=== PATIENT | female | born 2000 | race African-American/Black ===

== ENCOUNTER 2018-04-05 21:18 | Inpatient (IN) ==
[2018-04-05] MEDS ORDERED: PANTOPRAZOLE 40 MG VIAL IV STA (22:26)
[2018-04-05] MEDS ORDERED: ONDANSETRON 4 MG/2 ML VIAL IV STA (22:26)
[2018-04-05] MEDS ORDERED: SODIUM CHLORIDE 0.9% 1,000 ML IV STA (22:26)
[2018-04-05 23:18] LABS: Basophils % 0.2 % (0.0-0.8); Eosinophils # 0.3 10*3/uL (0.0-0.87); Eosinophils % 1.8 % (0.00-10.9); Hematocrit 32.5 VOL% (35.7-47.0); Hemoglobin 10.9 GM/DL (12.0-16.0); Immature Granulocytes % 0.9 %; Immature Granulocytes Absolute 0.15 #; Lymphocytes # 2.3 10*3/uL (1.4-4.0); Lymphocytes % 14.3 % (21.3-54.2); Mean Corpuscular HGB Conc 33.5 GM/DL (32-36); Mean Corpuscular Hemoglobin 24 PG (27-34); Mean Corpuscular Volume 71.1 FL (87-102); Mean Platelet Volume 10.3 FL (9.6-12.0); Monocytes # 1.6 10*3/uL (0.11-0.8); Monocytes % 9.7 % (1.7-12.7); Neutrophils # 11.8 10*3/uL (1.4-7.4); Neutrophils % 73.1 % (38.7-73.9); Platelet Count 416 T/CUMM (130-400); Red Blood Count 4.57 MC/CUMM (3.8-5.5); Red Cell Distribution Width 16.8 % (9.3-17.3); White Blood Count 16.2 T/CUMM (4-12)
[2018-04-05 23:50] LABS: Albumin 3.3 G/DL (3.4-5.0); Bilirubin,Total 0.6 MG/DL (0.2-1.0); Calcium 9.4 MG/DL (8.5-10.1); Osmolality,Calculated 296.7 MOS/KG (273-304); Total Protein 8.4 G/DL (6.4-8.3)
[2018-04-05 23:51] LABS: Lactic Acid 1.5 MMOL/L (0.4-2.0)
[2018-04-05 23:59] LABS: Apearance,Urine Slightly Hazy (Clear); Bilirubin,Urine Negative (Negative); Blood, Urine Large mg/dL (Negative); Glucose,Urine (UA) Negative (Negative); Ketones,Urine Negative (Negative); Nitrite,Urine Negative (Negative); Protein,Urine 30 MG/DL; RBC,Urine 1 /HPF (0-4); Squamous Epithelial Cell,Urine Occasional /HPF (0-10); Urine Color Yellow (Yellow); Urine Urobilinogen < 2.0 EU/DL (0.2-1.0); WBC,Urine 4 /HPF (0-6)
[2018-04-06] MEDS ORDERED: SODIUM CHLORIDE 0.9% 1,000 ML IV STA (00:16)
[2018-04-06] MEDS ORDERED: SODIUM CHLORIDE 0.9% 1,000 ML IV SCH (02:00)
[2018-04-06 04:13] LABS: Barbiturates Screen,Urine Negative (Negative); Benzodiazepines Screen,Urine Negative (Negative); Cannabinoid Screen,Urine Negative (Negative); Opiate Screen,Urine Negative (Negative); Phencyclidine Screen,Urine Negative (Negative)
[2018-04-06 05:48] LABS: Basophils % 0.1 % (0.0-0.8); Eosinophils # 0.2 10*3/uL (0.0-0.87); Eosinophils % 1.7 % (0.00-10.9); Hemoglobin 9.1 GM/DL (12.0-16.0); Immature Granulocytes % 0.9 %; Immature Granulocytes Absolute 0.12 #; Lymphocytes % 14.6 % (21.3-54.2); Mean Corpuscular HGB Conc 32.5 GM/DL (32-36); Mean Corpuscular Hemoglobin 23 PG (27-34); Mean Corpuscular Volume 71.6 FL (87-102); Mean Platelet Volume 11.1 FL (9.6-12.0); Monocytes # 1.2 10*3/uL (0.11-0.8); Monocytes % 8.7 % (1.7-12.7); Neutrophils # 10.1 10*3/uL (1.4-7.4); Platelet Count 385 T/CUMM (130-400); Red Blood Count 3.91 MC/CUMM (3.8-5.5); Red Cell Distribution Width 16.9 % (9.3-17.3); White Blood Count 13.6 T/CUMM (4-12)
[2018-04-06 05:59] LABS: Risk Ratio 4.52; VLDL CHOLESTEROL 13.8 MG/DL
[2018-04-06] MEDS ORDERED: POTASSIUM CHLORIDE 20 MEQ TABLET PO ONE (06:11)
[2018-04-06 06:20] LABS: Albumin 2.7 G/DL (3.4-5.0); Bilirubin,Total 0.8 MG/DL (0.2-1.0); Calcium 8.1 MG/DL (8.5-10.1); Osmolality,Calculated 302.1 MOS/KG (273-304); Potassium 3.7 MMOL/L (3.5-5.1); Thyroid Stimulating Hormone 0.738 uIU/ml (0.358-3.74); Total Protein 6.9 G/DL (6.4-8.3)
[2018-04-06] MEDS ORDERED: LEVOFLOXACIN INJ 500 MG in PREMIX 1 EACH IV ONE (06:44)
[2018-04-06 06:49] LABS: Hepatitis A Ab IgM Quant 0.14 Index; Hepatitis A Ab IgM Result Negative (Negative); Hepatitis B Core IgM Quant 0.07 Index; Hepatitis B Core IgM Result Negative (Negative); Hepatitis B Surface Ag Quant 0.27 Index; Hepatitis B Surface Ag Result Negative (Negative); Hepatitis C Virus Ab Quant 0.09 Index; Hepatitis C Virus Ab Result Negative (Negative)
[2018-04-06 08:19] LABS: HIV Antigen/Antibody Result Nonreactive (Nonreactive)
[2018-04-06] MEDS ORDERED: PANTOPRAZOLE 40 MG TABLET PO SCH (09:00)
[2018-04-06] MEDS: SODIUM CHLORIDE 0.9% 1,000 ML IV SCH ×2 (10:05→13:08)
[2018-04-06] MEDS: SODIUM BICARB INJ 50 MEQ in DEXTROSE 5% NACL 0.45% 1,000 ML IV SCH (17:09)
[2018-04-06] MEDS: PANTOPRAZOLE 40 MG TABLET PO SCH (20:51)
[2018-04-06] MEDS: ONDANSETRON 4 MG/2 ML VIAL IV PRN (22:27)
[2018-04-07] MEDS: SODIUM BICARB INJ 50 MEQ in DEXTROSE 5% NACL 0.45% 1,000 ML IV SCH ×2 (02:50→15:43)
[2018-04-07 06:40] LABS: Basophils % 0.2 % (0.0-0.8); Eosinophils # 0.3 10*3/uL (0.0-0.87); Eosinophils % 2.3 % (0.00-10.9); Hematocrit 25.9 VOL% (35.7-47.0); Hemoglobin 8.4 GM/DL (12.0-16.0); Immature Granulocytes % 1.1 %; Immature Granulocytes Absolute 0.13 #; Lymphocytes # 1.9 10*3/uL (1.4-4.0); Lymphocytes % 16.7 % (21.3-54.2); Mean Corpuscular HGB Conc 32.4 GM/DL (32-36); Mean Corpuscular Hemoglobin 23 PG (27-34); Mean Corpuscular Volume 71.9 FL (87-102); Mean Platelet Volume 10.6 FL (9.6-12.0); Monocytes % 8.5 % (1.7-12.7); Neutrophils # 8.2 10*3/uL (1.4-7.4); Neutrophils % 71.2 % (38.7-73.9); Platelet Count 359 T/CUMM (130-400); White Blood Count 11.5 T/CUMM (4-12)
[2018-04-07 07:02] LABS: Calcium 8.3 MG/DL (8.5-10.1)
[2018-04-07 07:20] LABS: % Iron Saturation 29.4 % (18-50); Ferritin 149.3 ng/ml (8-252)
[2018-04-07 09:36] LABS: Collection Time,Urine 24 HOURS; Creatinine 24 Hr Urine Result 0.98 G/24HR (0.60-1.80); Total Protein 24 Hr Ur Result 500 MG/24HR (0-149.1); Total Volume,Urine 2000 ML (400-2000)
[2018-04-07] MEDS: PANTOPRAZOLE 40 MG TABLET PO SCH ×2 (10:59→20:32)
[2018-04-08] MEDS: ONDANSETRON 4 MG/2 ML VIAL IV PRN (03:47)
[2018-04-08 04:09] LABS: Basophils # 0.1 10*3/uL (0.0-0.2); Basophils % 0.4 % (0.0-0.8); Eosinophils # 0.4 10*3/uL (0.0-0.87); Eosinophils % 3.3 % (0.00-10.9); Hematocrit 26.7 VOL% (35.7-47.0); Hemoglobin 8.8 GM/DL (12.0-16.0); Immature Granulocytes Absolute 0.12 #; Lymphocytes % 17.4 % (21.3-54.2); Mean Corpuscular Hemoglobin 24 PG (27-34); Mean Platelet Volume 10.6 FL (9.6-12.0); Monocytes # 0.9 10*3/uL (0.11-0.8); Monocytes % 7.9 % (1.7-12.7); Neutrophils # 8.1 10*3/uL (1.4-7.4); Platelet Count 400 T/CUMM (130-400); Red Blood Count 3.71 MC/CUMM (3.8-5.5); White Blood Count 11.6 T/CUMM (4-12)
[2018-04-08] MEDS ORDERED: MORPHINE 4 MG/1 ML VIAL IV ONE (04:13)
[2018-04-08 04:28] LABS: Blood Urea Nitrogen 56 MG/DL (7-18); Calcium 8.6 MG/DL (8.5-10.1); Glucose 106 MG/DL (74-106); Potassium 3.8 MMOL/L (3.5-5.1); Sodium 143 MMOL/L (136-145)
[2018-04-08] MEDS: SODIUM BICARB INJ 50 MEQ in DEXTROSE 5% NACL 0.45% 1,000 ML IV SCH ×2 (05:39→13:49)
[2018-04-08] MEDS: LEVOFLOXACIN INJ 250 MG in PREMIX 1 EACH IV SCH (06:18)
[2018-04-08] MEDS ORDERED: LIDOCAINE 100 MG/5 ML SYRINGE ONE (09:00)
[2018-04-08] MEDS ORDERED: PROPOFOL 200 MG/20 ML VIAL IV ONE (09:00)
[2018-04-08] MEDS: PANTOPRAZOLE 40 MG TABLET PO SCH ×2 (13:50→20:47)
[2018-04-08] MEDS: DEXTROSE 5% NACL 0.45% 1,000 ML IV SCH (13:50)
[2018-04-09] MEDS ORDERED: ACETAMINOPHEN 325 MG TABLET PO ONE (01:00)
[2018-04-09] MEDS: DEXTROSE 5% NACL 0.45% 1,000 ML IV SCH ×2 (01:12→14:06)
[2018-04-09] MEDS ORDERED: PROMETHAZINE 25 MG/1 ML VIAL IM ONE (01:25)
[2018-04-09] MEDS ORDERED: MEPERIDINE 25 MG/1 ML VIAL IV ONE (01:44)
[2018-04-09 04:08] LABS: Basophils % 0.2 % (0.0-0.8); Eosinophils # 0.3 10*3/uL (0.0-0.87); Eosinophils % 2.1 % (0.00-10.9); Hematocrit 27.3 VOL% (35.7-47.0); Hemoglobin 9.1 GM/DL (12.0-16.0); Immature Granulocytes % 0.8 %; Immature Granulocytes Absolute 0.12 #; Lymphocytes # 1.7 10*3/uL (1.4-4.0); Lymphocytes % 11.7 % (21.3-54.2); Mean Corpuscular HGB Conc 33.3 GM/DL (32-36); Mean Corpuscular Hemoglobin 24 PG (27-34); Mean Corpuscular Volume 70.4 FL (87-102); Mean Platelet Volume 10.4 FL (9.6-12.0); Monocytes # 0.9 10*3/uL (0.11-0.8); Monocytes % 6.4 % (1.7-12.7); Neutrophils # 11.7 10*3/uL (1.4-7.4); Neutrophils % 78.8 % (38.7-73.9); Platelet Count 448 T/CUMM (130-400); Red Blood Count 3.88 MC/CUMM (3.8-5.5); Red Cell Distribution Width 17.2 % (9.3-17.3); White Blood Count 14.8 T/CUMM (4-12)
[2018-04-09 04:47] LABS: Calcium 8.8 MG/DL (8.5-10.1); Potassium 3.8 MMOL/L (3.5-5.1)
[2018-04-09] MEDS: PANTOPRAZOLE 40 MG TABLET PO SCH ×2 (08:36→21:09)
[2018-04-10] MEDS: DEXTROSE 5% NACL 0.45% 1,000 ML IV SCH ×3 (02:06→16:23)
[2018-04-10 03:26] LABS: Basophils % 0.4 % (0.0-0.8); Eosinophils # 0.4 10*3/uL (0.0-0.87); Eosinophils % 3.6 % (0.00-10.9); Hematocrit 27.2 VOL% (35.7-47.0); Immature Granulocytes Absolute 0.11 #; Lymphocytes # 2.4 10*3/uL (1.4-4.0); Lymphocytes % 22.3 % (21.3-54.2); Mean Corpuscular HGB Conc 33.1 GM/DL (32-36); Mean Corpuscular Hemoglobin 24 PG (27-34); Mean Corpuscular Volume 72.1 FL (87-102); Monocytes # 0.7 10*3/uL (0.11-0.8); Monocytes % 6.6 % (1.7-12.7); Neutrophils # 7.2 10*3/uL (1.4-7.4); Neutrophils % 66.1 % (38.7-73.9); Platelet Count 446 T/CUMM (130-400); Red Blood Count 3.77 MC/CUMM (3.8-5.5); Red Cell Distribution Width 17.2 % (9.3-17.3); White Blood Count 10.9 T/CUMM (4-12)
[2018-04-10 04:16] LABS: Blood Urea Nitrogen 29 MG/DL (7-18); Calcium 8.3 MG/DL (8.5-10.1); Glucose 102 MG/DL (74-106); Osmolality,Calculated 282.5 MOS/KG (273-304); Potassium 3.6 MMOL/L (3.5-5.1); Sodium 139 MMOL/L (136-145)
[2018-04-10] MEDS: LEVOFLOXACIN INJ 250 MG in PREMIX 1 EACH IV SCH (06:04)
[2018-04-10] MEDS: PANTOPRAZOLE 40 MG TABLET PO SCH ×2 (08:17→20:43)
[2018-04-10] MEDS: DOCUSATE SODIUM 100 MG CAPSULE PO SCH ×2 (15:16→20:43)
[2018-04-10] MEDS: POLYETHYLENE GLYCOL POWDER 17 GM PACK PO SCH ×2 (15:16→20:43)
[2018-04-10] MEDS: SUCRALFATE 1 GM/10 ML UDCUP PO SCH ×2 (16:22→20:44)
[2018-04-11] MEDS: DEXTROSE 5% NACL 0.45% 1,000 ML IV SCH ×3 (06:48→21:36)
[2018-04-11] MEDS: DOCUSATE SODIUM 100 MG CAPSULE PO SCH ×2 (08:13→21:34)
[2018-04-11] MEDS: PANTOPRAZOLE 40 MG TABLET PO SCH ×2 (08:13→21:34)
[2018-04-11] MEDS: SUCRALFATE 1 GM/10 ML UDCUP PO SCH ×4 (08:13→21:34)
[2018-04-11] MEDS: POLYETHYLENE GLYCOL POWDER 17 GM PACK PO SCH (08:16)
[2018-04-11] MEDS ORDERED: POLYETHYLENE GLYCOL POWDER 17 GM PACK PO PRN (18:59)
[2018-04-12 04:04] LABS: Basophils # 0.1 10*3/uL (0.0-0.2); Basophils % 0.5 % (0.0-0.8); Eosinophils # 0.4 10*3/uL (0.0-0.87); Eosinophils % 3.9 % (0.00-10.9); Hematocrit 28.1 VOL% (35.7-47.0); Hemoglobin 9.5 GM/DL (12.0-16.0); Immature Granulocytes % 0.7 %; Immature Granulocytes Absolute 0.07 #; Lymphocytes # 2.6 10*3/uL (1.4-4.0); Lymphocytes % 25.1 % (21.3-54.2); Mean Corpuscular HGB Conc 33.8 GM/DL (32-36); Mean Corpuscular Hemoglobin 24 PG (27-34); Mean Corpuscular Volume 71.1 FL (87-102); Monocytes # 0.5 10*3/uL (0.11-0.8); Monocytes % 4.8 % (1.7-12.7); Neutrophils # 6.8 10*3/uL (1.4-7.4); Platelet Count 462 T/CUMM (130-400); Red Blood Count 3.95 MC/CUMM (3.8-5.5); Red Cell Distribution Width 17.2 % (9.3-17.3); White Blood Count 10.5 T/CUMM (4-12)
[2018-04-12 04:20] LABS: Calcium 8.6 MG/DL (8.5-10.1); Osmolality,Calculated 278.5 MOS/KG (273-304); Potassium 3.8 MMOL/L (3.5-5.1)
[2018-04-12] MEDS: LEVOFLOXACIN INJ 250 MG in PREMIX 1 EACH IV SCH (07:04)
[2018-04-12] MEDS: DOCUSATE SODIUM 100 MG CAPSULE PO SCH (08:56)
[2018-04-12] MEDS: PANTOPRAZOLE 40 MG TABLET PO SCH (08:56)
[2018-04-12] MEDS: SUCRALFATE 1 GM/10 ML UDCUP PO SCH ×2 (08:57→12:24)
[2018-04-12] MEDS ORDERED: POLYETHYLENE GLYCOL POWDER 17 GM PACK PO SCH (09:00)
[2018-04-12 09:01] LABS: Alanine Aminotransferase 86 U/L (13-56); Albumin 2.8 G/DL (3.4-5.0); Alkaline Phosphatase 54 U/L (45-117); Aspartate Amino Transferase 37 U/L (0-37); Bilirubin,Indirect 0.3 MG/DL (0.0-1.0); Bilirubin,Total < 0.39 MG/DL (0.2-1.0); Total Protein 7.2 G/DL (6.4-8.3)
[2018-04-12] MEDS: DEXTROSE 5% NACL 0.45% 1,000 ML IV SCH (13:00)
[2018-04-12 14:32] VITALS: BP 109/65
== END 2018-04-12 15:35 | disposition home or self-care (01) | DRG 683 ==
LOC: N.ED 21:18 → N.EDINP 04-06 01:47 → SUATTDRO 04-06 01:47 → N.5E 04-06 02:17
PROVIDERS: ATTEND Hospitalist

== ENCOUNTER 2020-12-05 12:34 | Inpatient (IN) ==
[2020-12-05] MEDS ORDERED: BETAMETH SODIUM PHOS/ACETATE 30 MG/5 ML VIAL IM SCH (14:09)
[2020-12-05 17:13] LABS: Basophils % 0.2 % (0.0-0.8); Eosinophils # 0.1 10*3/uL (0.0-0.87); Eosinophils % 0.4 % (0.00-10.9); Hematocrit 36.9 VOL% (35.7-47.0); Hemoglobin 12.7 GM/DL (12.0-16.0); Immature Granulocytes % 2.5 %; Immature Granulocytes Absolute 0.35 #; Lymphocytes # 2.5 10*3/uL (1.4-4.0); Lymphocytes % 17.5 % (21.3-54.2); Mean Corpuscular HGB Conc 34.4 GM/DL (32-36); Mean Corpuscular Volume 84.6 FL (87-102); Mean Platelet Volume 11.4 FL (9.6-12.0); Monocytes % 6.2 % (1.7-12.7); NRBC # 0.03 10*3/uL; Neutrophils % 73.2 % (38.7-73.9); Platelet Count 184 T/CUMM (130-400); Red Blood Count 4.36 MC/CUMM (3.8-5.5); Red Cell Distribution Width 13.5 % (9.3-17.3); White Blood Count 14.1 T/CUMM (4-12)
[2020-12-06] MEDS ORDERED: CLINDAMYCIN INJ 900 MG/50 ML PREMIX IV SCH (00:30)
[2020-12-06] MEDS ORDERED: FAMOTIDINE 20 MG/2 ML VIAL IV ONE ×2 (05:05→12:18)
[2020-12-06] MEDS ORDERED: CLINDAMYCIN INJ 900 MG/50 ML PREMIX IV ONE ×2 (05:05→12:30)
[2020-12-06] MEDS ORDERED: CITRIC ACID/SODIUM CITRATE 30 ML UDCUP PO ONE (05:05)
[2020-12-06] MEDS ORDERED: OXYTOCIN/LR 20 UNIT/1,000 ML BAG IV ONE ×2 (05:06→17:18)
[2020-12-06] MEDS ORDERED: OXYTOCIN 10 UNIT/ML VIAL IM ONE ×2 (05:06→12:30)
[2020-12-06] MEDS ORDERED: OXYTOCIN/LR 30 UNIT/1,000 ML BAG IV ONE (05:06)
[2020-12-06] MEDS: LACTATED RINGERS 1,000 ML IV SCH ×2 (11:59→14:05)
[2020-12-06] MEDS ORDERED: CITRIC ACID/SODIUM CITRATE 30 ML UDCUP ONE (12:18)
[2020-12-06] MEDS ORDERED: miSOPROStoL 200 MCG TABLET ONE (15:02)
[2020-12-06] MEDS ORDERED: TRANEXAMIC ACID 1,000 MG/10 ML VIAL ONE (15:02)
[2020-12-06] MEDS ORDERED: METHYLERGONOVINE 0.2 MG/1 ML AMP ONE (15:03)
[2020-12-06] MEDS ORDERED: CARBOPROST TROMETHAMINE 250 MCG/ML AMP IM ONE (15:03)
[2020-12-06] MEDS ORDERED: SODIUM CHLORIDE 0.9% 100 ML IV ONE (15:05)
[2020-12-06] MEDS ORDERED: BUPIVACAINE SPINAL 0.75% 2 ML AMP SPINAL ONE (16:17)
[2020-12-06] MEDS ORDERED: fentaNYL 100 MCG/2 ML VIAL ONE (16:47)
[2020-12-06] MEDS ORDERED: DEXAMETHASONE 4 MG/1 ML VIAL ONE (16:59)
[2020-12-06] MEDS ORDERED: ROPIVACAINE 0.5% 30 ML VIAL ONE ×2 (16:59)
[2020-12-06] MEDS ORDERED: LIDOCAINE 2% 5 ML VIAL ONE (17:03)
[2020-12-06] MEDS ORDERED: SUCCINYLCHOLINE 200 MG/10 ML VIAL ONE (17:03)
[2020-12-06] MEDS ORDERED: propofoL 200 MG/20 ML VIAL IV ONE (17:03)
[2020-12-06] MEDS ORDERED: SEVOFLURANE 1 UNIT/15 MINUTE INH ONE (17:03)
[2020-12-06 17:06] LABS: Cord Arterial Blood HCO3 23.9 MMOL/L
[2020-12-06 17:09] LABS: Cord Venous Blood HCO3 23.1 MMOL/L; Cord Venous Blood PCO2 40.2 MMHG; Cord Venous Blood PO2 47.4 MMHG
[2020-12-06] MEDS ORDERED: ONDANSETRON 4 MG/2 ML VIAL IV PRN ×2 (17:18→17:39)
[2020-12-06] MEDS ORDERED: RHO(D) IMMUNE GLOBULIN 300 MCG SYRINGE IM ONE (17:18)
[2020-12-06] MEDS ORDERED: SIMETHICONE CHEW 80 MG TABLET PO PRN (17:18)
[2020-12-06] MEDS ORDERED: ACETAMINOPHEN 325 MG TABLET PO PRN (17:18)
[2020-12-06 17:20] LABS: Cord Arterial Blood HCO3 25.3 MMOL/L
[2020-12-06 17:24] LABS: Cord Venous Blood HCO3 21.9 MMOL/L; Cord Venous Blood PCO2 35.2 MMHG
[2020-12-06] MEDS ORDERED: LACTATED RINGERS 1,000 ML IV SCH (17:30)
[2020-12-06] MEDS ORDERED: hydrOXYzine HCL 25 MG/1 ML VIAL IM PRN (17:39)
[2020-12-06] MEDS ORDERED: diphenhydrAMINE 50 MG/1 ML VIAL IV PRN (17:39)
[2020-12-06] MEDS ORDERED: HYDROmorphone 2 MG/1 ML VIAL IV PRN (17:39)
[2020-12-06] MEDS: KETOROLAC 30 MG/1 ML VIAL IV SCH (20:28)
[2020-12-06] MEDS ORDERED: ACETAMINOPHEN 500 MG TABLET PO SCH (20:30)
[2020-12-06] MEDS: DOCUSATE SODIUM 100 MG CAPSULE PO SCH (23:43)
[2020-12-07] MEDS ORDERED: KETOROLAC 30 MG/1 ML VIAL IV SCH (00:45)
[2020-12-07] MEDS ORDERED: ACETAMINOPHEN 500 MG TABLET PO SCH (00:45)
[2020-12-07] MEDS: CLINDAMYCIN INJ 900 MG/50 ML PREMIX IV SCH ×2 (01:26→10:12)
[2020-12-07] MEDS: KETOROLAC 30 MG/1 ML VIAL IV SCH ×2 (03:55→10:11)
[2020-12-07 05:28] LABS: Basophils % 0.2 % (0.0-0.8); Eosinophils # 0.1 10*3/uL (0.0-0.87); Eosinophils % 0.3 % (0.00-10.9); Hematocrit 26.7 VOL% (35.7-47.0); Hemoglobin 9.4 GM/DL (12.0-16.0); Immature Granulocytes % 1.2 %; Immature Granulocytes Absolute 0.28 #; Lymphocytes # 2.3 10*3/uL (1.4-4.0); Lymphocytes % 10.2 % (21.3-54.2); Mean Corpuscular HGB Conc 35.2 GM/DL (32-36); Mean Corpuscular Volume 84.2 FL (87-102); Mean Platelet Volume 12.1 FL (9.6-12.0); Monocytes % 7.5 % (1.7-12.7); NRBC # 0.02 10*3/uL; Neutrophils % 80.6 % (38.7-73.9); Platelet Count 180 T/CUMM (130-400); Red Blood Count 3.17 MC/CUMM (3.8-5.5); Red Cell Distribution Width 13.4 % (9.3-17.3); White Blood Count 22.7 T/CUMM (4-12)
[2020-12-07 07:45] LABS: Lymphocytes 10 % (20-55); Metamyelocytes 1 %; Segmented Neutrophils 85 % (50-85); Total Cells Counted 100
[2020-12-07 07:46] LABS: Platelet Estimate Normal
[2020-12-07 07:47] LABS: Anisocytosis 1+; Polychromasia Slight; Tear Drop Cells Few
[2020-12-07] MEDS: MULTIVITAMIN (PRENATAL) TABLET PO SCH (10:09)
[2020-12-07] MEDS: DOCUSATE SODIUM 100 MG CAPSULE PO SCH ×2 (10:11→20:28)
[2020-12-07] MEDS ORDERED: BISACODYL 10 MG SUPP RECTAL PRN (10:25)
[2020-12-07] MEDS: METOCLOPRAMIDE 10 MG TABLET PO SCH ×2 (12:42→18:13)
[2020-12-07] MEDS: IBUPROFEN 800 MG TABLET PO PRN (19:47)
[2020-12-07] MEDS: MAGNESIUM HYDROXIDE SUSP 30 ML UDCUP PO PRN (20:29)
[2020-12-08] MEDS: oxyCODONE/ACETAMINOPHEN 5-325 MG TABLET PO PRN ×3 (02:02→21:54)
[2020-12-08] MEDS: METOCLOPRAMIDE 10 MG TABLET PO SCH ×4 (02:02→21:53)
[2020-12-08] MEDS: DOCUSATE SODIUM 100 MG CAPSULE PO SCH ×3 (10:28→21:45)
[2020-12-08] MEDS: MULTIVITAMIN (PRENATAL) TABLET PO SCH (10:28)
[2020-12-08] MEDS: IBUPROFEN 800 MG TABLET PO PRN (10:34)
[2020-12-08] MEDS ORDERED: MAGNESIUM CITRATE 300 ML BOTTLE PO ONE (18:25)
[2020-12-08] MEDS: MAGNESIUM HYDROXIDE SUSP 30 ML UDCUP PO PRN (21:53)
[2020-12-09] MEDS: METOCLOPRAMIDE 10 MG TABLET PO SCH ×2 (03:21→05:12)
[2020-12-09] MEDS: oxyCODONE/ACETAMINOPHEN 5-325 MG TABLET PO PRN (05:12)
[2020-12-09] MEDS: DOCUSATE SODIUM 100 MG CAPSULE PO SCH (08:36)
[2020-12-09] MEDS: MULTIVITAMIN (PRENATAL) TABLET PO SCH (08:36)
[2020-12-09 09:19] VITALS: BP 136/93
== END 2020-12-09 13:35 | disposition home or self-care (01) | DRG 788 ==
LOC: N.LDOUT 12:34 → N.LD 12:36 → N.OB 17:29 → N.LD 12-06 04:51 → N.OB 12-06 23:20
PROVIDERS: ADMIT Obstetrics & Gynecology; ATTEND Obstetrics & Gynecology
PROC: LDCSECT (ICD-10-PCS; 2020-12-06 10:50)

== ENCOUNTER 2021-12-17 16:40 | Observation (INO) ==
[2021-12-17 17:14] LABS: Mucus,Urine Many /LPF (Occasional); RBC,Urine 7 /HPF (0-4); Squamous Epithelial Cell,Urine Few /HPF (0-10)
[2021-12-17 17:15] LABS: Bilirubin,Urine Negative (Negative); Blood, Urine Negative (Negative); Glucose,Urine (UA) Negative (Negative); Ketones,Urine >160 mg/dL (Negative); Nitrite,Urine Positive (Negative); Protein,Urine Trace mg/dL (Negative); Urine Appearance Clear (Clear); Urine Color Yellow (Yellow)
[2021-12-17] MEDS ORDERED: ONDANSETRON 4 MG/2 ML VIAL IV STA (17:42)
[2021-12-17] MEDS ORDERED: SODIUM CHLORIDE 0.9% 1,000 ML IV STA (17:42)
[2021-12-17] MEDS ORDERED: MORPHINE 2 MG/1 ML SYRINGE IV STA (17:42)
[2021-12-17 18:08] LABS: Basophils % 0.2 % (0.0-0.8); Eosinophils # 0.1 10*3/uL (0.0-0.87); Eosinophils % 0.4 % (0.00-10.9); Hematocrit 37.3 VOL% (35.7-47.0); Hemoglobin 11.8 GM/DL (12.0-16.0); Immature Granulocytes % 0.5 %; Immature Granulocytes Absolute 0.09 #; Lymphocytes # 2.7 10*3/uL (1.4-4.0); Lymphocytes % 16.5 % (21.3-54.2); Mean Corpuscular HGB Conc 31.6 GM/DL (32-36); Mean Corpuscular Volume 70.5 FL (87-102); Mean Platelet Volume 9.8 FL (9.6-12.0); Monocytes # 1.2 10*3/uL (0.11-0.8); Monocytes % 7.1 % (1.7-12.7); Neutrophils % 75.3 % (38.7-73.9); Platelet Count 407 T/CUMM (130-400); Red Blood Count 5.29 MC/CUMM (3.8-5.5); Red Cell Distribution Width 18.3 % (9.3-17.3); White Blood Count 16.6 T/CUMM (4-12)
[2021-12-17] MEDS ORDERED: LEVOFLOXACIN INJ 500 MG/100 ML PREMIX IV ONE (18:31)
[2021-12-17 18:37] LABS: Albumin 3.6 G/DL (3.4-5.0); Bilirubin,Total 1.3 MG/DL (0.20-1.00); Osmolality,Calculated 269.8 MOS/KG (273-304); Potassium 3.6 MMOL/L (3.5-5.1); Total Protein 7.9 G/DL (6.4-8.2)
[2021-12-17] MEDS ORDERED: KETOROLAC 30 MG/1 ML VIAL IV STA (20:16)
[2021-12-17] MEDS ORDERED: MAGNESIUM SULF RIDER 2 GM/50 ML PREMIX IV PRN (21:24)
[2021-12-17] MEDS ORDERED: MAGNESIUM SULF RIDER 4 GM/100 ML PREMIX IV PRN (21:24)
[2021-12-17] MEDS ORDERED: GLUCAGON 1 MG VIAL IM PRN (21:24)
[2021-12-17] MEDS ORDERED: POTASSIUM CHLORIDE RIDER 10 MEQ/100 ML PREMIX IV PRN (21:30)
[2021-12-17] MEDS ORDERED: SIMETHICONE CHEW 125 MG TABLET PO PRN (21:30)
[2021-12-17] MEDS ORDERED: ONDANSETRON 4 MG/2 ML VIAL IV PRN (21:30)
[2021-12-17] MEDS ORDERED: KETOROLAC 30 MG/1 ML VIAL IV PRN (21:36)
[2021-12-17] MEDS ORDERED: DEXTROSE 10% 250 ML BAG IV PRN (21:43)
[2021-12-18] MEDS: SODIUM CHLORIDE 0.9% 1,000 ML IV SCH ×2 (01:22→08:39)
[2021-12-18 02:57] LABS: Epithelial Cell Wet Mount Moderate /HPF (Few/HPF); RBC Wet Mount 0 /HPF
[2021-12-18 02:58] LABS: Bacteria Wet Mount 0 /HPF; Clue Cells 0 /HPF (None Seen); Trichomonas Wet Mount 0 /HPF (None Seen); Yeast Wet Mount 0 /HPF (None Seen)
[2021-12-18 04:00] LABS: Basophils % 0.2 % (0.0-0.8); Eosinophils # 0.1 10*3/uL (0.0-0.87); Eosinophils % 0.5 % (0.00-10.9); Hematocrit 30.5 VOL% (35.7-47.0); Immature Granulocytes % 0.6 %; Immature Granulocytes Absolute 0.09 #; Lymphocytes # 2.2 10*3/uL (1.4-4.0); Lymphocytes % 14.3 % (21.3-54.2); Mean Corpuscular HGB Conc 32.8 GM/DL (32-36); Mean Platelet Volume 9.4 FL (9.6-12.0); Monocytes # 1.1 10*3/uL (0.11-0.8); Monocytes % 7.4 % (1.7-12.7); Platelet Count 314 T/CUMM (130-400); Red Blood Count 4.36 MC/CUMM (3.8-5.5); Red Cell Distribution Width 17.7 % (9.3-17.3); White Blood Count 15.4 T/CUMM (4-12)
[2021-12-18 04:20] LABS: Calcium 7.8 MG/DL (8.5-10.1); Osmolality,Calculated 278.3 MOS/KG (273-304); Potassium 3.5 MMOL/L (3.5-5.1)
[2021-12-18] MEDS: DOCUSATE SODIUM 100 MG CAPSULE PO SCH ×2 (08:39→21:24)
[2021-12-18] MEDS: PANTOPRAZOLE 40 MG TABLET PO SCH (08:39)
[2021-12-18] MEDS ORDERED: oxyCODONE/ACETAMINOPHEN 5-325 MG TABLET PO PRN (09:34)
[2021-12-18] MEDS: CLINDAMYCIN INJ 600 MG/50 ML PREMIX IV SCH ×2 (10:15→17:40)
[2021-12-18] MEDS ORDERED: DOXYCYCLINE HYCLATE INJ 100 MG in SODIUM CHLORIDE 0.9% 100 ML IV SCH (11:00)
[2021-12-18] MEDS ORDERED: GENTAMICIN INJ 440 MG in SODIUM CHLORIDE 0.9% 100 ML IV SCH (17:00)
[2021-12-18] MEDS ORDERED: LEVOFLOXACIN INJ 500 MG/100 ML PREMIX IV SCH (18:00)
[2021-12-19] MEDS: CLINDAMYCIN INJ 600 MG/50 ML PREMIX IV SCH ×2 (01:53→09:35)
[2021-12-19 05:49] LABS: Basophils % 0.2 % (0.0-0.8); Eosinophils # 0.2 10*3/uL (0.0-0.87); Eosinophils % 1.2 % (0.00-10.9); Hematocrit 28.2 VOL% (35.7-47.0); Hemoglobin 9.1 GM/DL (12.0-16.0); Immature Granulocytes % 0.5 %; Immature Granulocytes Absolute 0.06 #; Lymphocytes # 2.3 10*3/uL (1.4-4.0); Lymphocytes % 17.5 % (21.3-54.2); Mean Corpuscular HGB Conc 32.3 GM/DL (32-36); Mean Platelet Volume 10.3 FL (9.6-12.0); Monocytes % 7.9 % (1.7-12.7); Neutrophils % 72.7 % (38.7-73.9); Platelet Count 297 T/CUMM (130-400); Red Blood Count 3.97 MC/CUMM (3.8-5.5); Red Cell Distribution Width 17.7 % (9.3-17.3); White Blood Count 12.9 T/CUMM (4-12)
[2021-12-19 06:02] LABS: Calcium 8.3 MG/DL (8.5-10.1); Osmolality,Calculated 272.5 MOS/KG (273-304); Potassium 3.5 MMOL/L (3.5-5.1)
[2021-12-19] MEDS: POTASSIUM CHLORIDE 20 MEQ TABLET PO PRN ×2 (09:35→13:10)
[2021-12-19] MEDS: DOCUSATE SODIUM 100 MG CAPSULE PO SCH (09:35)
[2021-12-19] MEDS: PANTOPRAZOLE 40 MG TABLET PO SCH (09:35)
[2021-12-19 12:40] VITALS: BP 108/73
== END 2021-12-19 15:53 | disposition home or self-care (01) ==
LOC: N.EDINP 16:40 → N.ED 16:40 → N.EDINP 12-18 15:52 → N.TELES 12-18 15:58
PROVIDERS: ADMIT Internal Medicine; ATTEND Internal Medicine